=== PATIENT | male | born 2000 | race Caucasian/White ===

== ENCOUNTER 2023-10-16 01:18 | Emergency (ER) | payer OTHER ==
[~2023-10-16] VITALS: Ht 175.3 cm; Wt 76.0 kg
[2023-10-16] MEDS ORDERED: CELEBREX100 MG PO (01:55)
[2023-10-16 02:30] VITALS: BP 175/92
== END 2023-10-16 02:30 | disposition home or self-care (01) ==
LOC: ED 01:18 → EDBD 01:19 → ED 02:30
DX: S63.91XA Sprain of unspecified part of right wrist and hand, initial encounter (principal); S63.601A Unspecified sprain of right thumb, initial encounter; X50.0XXA Overexertion from strenuous movement or load, initial encounter
CPT/HCPCS: 73130; 99283-25; A9270